=== PATIENT | female | born 1985 | race Caucasian/White ===

== ENCOUNTER → 2017-03-04 | Day surgery (SDC) | payer BC ==
[~2017-03-04] MED LIST: ACETAMINOPHEN 1000 MG/100 ML 100 ML IV ONE; BUPIVACAINE/EPINEPHRINE 0.25% 50 ML VIAL ONE; KETOROLAC TROMETHAMINE 30 MG/ML (IVP) VIAL IV PUSH ONE; LACTATED RINGER'S 1000 ML INJ 1,000 ML ONE; MEPERIDINE HCL 25 MG/ML VIAL ONE; MIDAZOLAM HCL 2 MG/2 ML VIAL ONE; ONDANSETRON HCL 4 MG/2 ML VIAL IV PUSH ONE; PREN0.01 PO; PROPOFOL 200 MG/20 ML AMP IV ONE; ceFAZolin 2 GM PREMIX 50 ML ONE
--- NOTE | 2017-03-04 13:19 | TN ---
cc: HEMA HINTON M.D. DATE OF SURGERY: 03/04/2017 PREOPERATIVE DIAGNOSIS Recurrent umbilical hernia. POSTOPERATIVE DIAGNOSIS 1. Recurrent umbilical hernia. 2. Supraumbilical/epigastric hernia, incarcerated. PROCEDURE Open repair recurrent umbilical hernia and incarcerated epigastric hernia with modified separation of components and placement of 5 x 8 cm retrorectus mesh. SURGEON Dr. Hema Hinton. [employer] Felecia Ceja, MS III. ANESTHESIA General. INDICATIONS This is a very pleasant 31-year-old woman who presented with a recurrent hernia above the umbilicus. She had a repair at [facility] in 2003 and says the hernia recurred soon after. She now has a 5-month-old baby girl and the hernia has increased in size and causes occasional pain. She is desirous of operative repair. INTRAOPERATIVE FINDINGS Recurrent umbilical and supraumbilical and primary incarcerated epigastric hernia. Preperitoneal redundant fat in the incarcerated epigastric hernia excised and discarded. ESTIMATED BLOOD LOSS Less than 5 mL. DESCRIPTION OF PROCEDURE IN DETAIL The patient was identified as Pippa Felipe, taken to the operating room and placed in supine position. Sequential compression devices were placed on bilateral lower extremities. Following induction of adequate general anesthesia the patient's abdomen was prepped and draped in the usual sterile fashion with Betadine. A timeout procedure was performed. Following completion of the timeout procedure to everyone's satisfaction within the room, the proposed incision along the supraumbilical curvilinear scar was made with a marking pen extending it slightly a few millimeters in each lateral direction. Local anesthetic was distributed in the subcutaneous position beneath the proposed incision around the umbilicus and superiorly around the palpable incarcerated hernia. Incision was carried out with scalpel and hemostasis controlled with electrocautery. Umbilical skin was lifted off herniated and preperitoneal fatty tissue and three separate hernia defects were ultimately discovered superiorly and in the epigastric position incarcerated preperitoneal fat was coming through a separate 2 cm defect. Redundant fat was amputated after suture ligation at the base with a 2-0 Vicryl suture ligature. The defects were made one using electrocautery on small fascial bridges. Due to the now about 6 cm in size hernia defect the posterior components were from the rectus muscle and the posterior fascia and peritoneum were approximated with a running 2-0 PDS suture. The retrorectus space was measured and a 5 x 8 cm piece of [employer]rium ProLite mesh was cut from a 3 x 6 inch piece, placed in the retrorectus position and held in place at eight positions with 2-0 PDS sutures. The space was irrigated. There was no bleeding. The anterior fascia and rectus muscle were then approximated in the midline with a running 2-0 PDS suture. Local anesthetic was placed in the retrorectus position prior to completion of the closure of the anterior fascia. The subcutaneous layer was then quilted down using interrupted 2-0 Vicryl sutures and the umbilicus was reformed in an innie position with 2-0 Vicryl suture. 3-0 Vicryl and 4-0 Monocryl completed the skin closure. Dressings were applied with Mastisol, half-inch brown Steri-Strips, gauze and Tegaderm. An abdominal binder was placed. The patient tolerated the procedure without apparent complication. Sponge, needle and instrument counts were correct at the end of the case. MD WILLIAM Givens/CORTES /12:51 PM /1:03 PM
== END | disposition home or self-care (01) ==
LOC: ESDC 09:44
PROVIDERS: ATTEND Surgery Trauma Surgery
DX: K42.9 Umbilical hernia without obstruction or gangrene (principal)
CPT/HCPCS: 00750; 49572; 49585; C1781; J0131; J0690; J1885; J2175; J2250; J2405; J3010; J7120